=== PATIENT | male | born 1955 | race Hispanic/Latino ===

== ENCOUNTER 2023-07-16 05:02 | Observation (INO) | payer OTHER ==
[2023-07-11 11:03] LABS: BASOPHILS # (AUTO) 0.06 K/uL (0.00-0.20); BASOPHILS % (AUTO) 0.6 % (0.0-5.0); EOSINOPHILS # (AUTO) 0.29 K/uL (0.00-0.70); EOSINOPHILS % (AUTO) 3.1 % (0.0-8.0); HEMATOCRIT 44.9 % (42-54); IMMATURE GRANULOCYTE ABSOLUTE 0.03 K/uL (0-1); LYMPHOCYTES # (AUTO) 3.2 K/uL (1.0-4.8); LYMPHOCYTES % (AUTO) 33.2 % (21.0-51.0); MEAN CORPUSCULAR HEMOGLOBIN 29.9 pg (27.0-33.0); MEAN CORPUSCULAR VOLUME 90.7 fL (79-99); MONOCYTES # (AUTO) 0.8 K/uL (0.1-1.0); MONOCYTES % (AUTO) 8.3 % (3.0-13.0); NEUTROPHILS # (AUTO) 5.2 K/uL (1.8-7.7); NEUTROPHILS % (AUTO) 54.5 % (40.0-77.0); PLATELET COUNT (AUTO) 252 K/uL (130-400); RED BLOOD CELL COUNT(AUTO) 4.95 MIL/uL (4.50-6.20); RED CELL DISTRIBUTION WIDTH 12.6 % (11.0-15.5); WHITE BLOOD COUNT (AUTO) 9.5 K/uL (4.8-10.8)
[2023-07-11 11:04] VITALS: BP 199/95; PULSE 96; RESP 17
[2023-07-11 11:05] LABS: CREATININE 0.8 mg/dL (0.5-1.5); POTASSIUM 3.9 mmol/L (3.5-5.1)
[2023-07-11 11:36] LABS: INR 1.05 (0.85-1.15); PARTIAL THROMBOPLASTIN TIME 28.5 SEC (26.3-35.5); PROTHROMBIN TIME 11.3 SEC (9.6-11.6)
[~2023-07-16] VITALS: Ht 165.1 cm; Wt 121.2 kg
[2023-07-16] VITALS (27 sets, daily range): BP systolic 120–198; BP diastolic 65–111; PULSE 62–95; RESP 15–19; O2SAT 100
[~2023-07-16 05:02] MED LIST: ALLO100T PO; LOSA50TA64 PO; SIMV5TAB58 PO; [UNRECOGNIZED DRUG - OTHER] PO
[2023-07-16] MEDS ORDERED: LACTATED RINGERS 1000ML 1,000 ML IV ONE (06:12)
[2023-07-16] MEDS ORDERED: CEFAZOLIN SODIUM 1 GM VIAL ONE (06:12)
[2023-07-16] MEDS ORDERED: 0.9%NACL 100ML 48.45 ML, ROPIVACAINE 0.5% 5MG/ML 30ML 246.25 MG, KETOROLAC TROMETHAMINE... IV PRN ×5 (06:30)
[2023-07-16] MEDS ORDERED: FENTANYL CITRATE PF 50 MCG/1 ML 5ML AMP IV ONE ×3 (07:26→09:49)
[2023-07-16] MEDS ORDERED: MIDAZOLAM HCL 1 MG/ML 2ML VIAL ONE (08:07)
[2023-07-16] MEDS ORDERED: PROPOFOL 10 MG/ML 20ML VIAL IV ONE ×3 (08:07→11:07)
[2023-07-16] MEDS ORDERED: ONDANSETRON 4MG INJ ONE (08:12)
[2023-07-16] MEDS ORDERED: MIDAZOLAM HCL 1 MG/ML 5ML VIAL ONE (08:40)
[2023-07-16] MEDS ORDERED: KETAMINE 50MG/ML SYRINGE 50 MG/ML DISP.SYRIN ONE (08:40)
[2023-07-16] MEDS ORDERED: EPHEDRINE SULFATE 50 MG/ML AMPULE ONE (08:55)
[2023-07-16] MEDS ORDERED: LIDOCAINE HCL-MPF 1% 5ML AMP IJ ONE (10:02)
[2023-07-16] MEDS ORDERED: MEPERIDINE-PF 25 MG/ML SYG ONE ×2 (10:17→12:15)
[2023-07-16] MEDS ORDERED: NASAL DECONGESTANT NASAL (10:23)
[2023-07-16] MEDS ORDERED: TRANEXAMIC ACID 1000MG/10ML ONE ×2 (11:26→12:36)
[2023-07-16] MEDS ORDERED: HYDROMORPHONE PCA 10 MG/50 ML 50 ML IV ONE (13:41)
[2023-07-16] MEDS ORDERED: ACETAMINOPHEN 325 MG TAB PO PRN ×4 (14:00→15:00)
[2023-07-16] MEDS ORDERED: NALOXONE HCL 0.4 MG/1 ML ML IVP PRN (14:00)
[2023-07-16] MEDS ORDERED: HYDROMORPHONE PCA 10 MG/50 ML 50 ML IV PRN (14:00)
[2023-07-16] MEDS ORDERED: ONDANSETRON 4MG INJ IVP PRN ×2 (14:00→15:00)
[2023-07-16] MEDS ORDERED: DECONGESTANT NASAL PRN (14:00)
[2023-07-16] MEDS ORDERED: DIPHENHYDRAMINE HCL 25 MG CAPSULE PO PRN (15:00)
[2023-07-16] MEDS ORDERED: LACTULOSE 20 GM/30 ML UDCUP PO PRN (15:00)
[2023-07-16] MEDS ORDERED: ACETAMINOPHEN 325 MG TAB PO SCH (15:00)
[2023-07-16] MEDS ORDERED: DIPHENHYDRAMINE HCL 25 MG CAPSULE PO SCH (15:00)
[2023-07-16] MEDS: 0.9%NACL 1000ML 1,000 ML IV SCH ×2 (15:00→19:55)
[2023-07-16] MEDS ORDERED: DIPHENOXYLATE HCL/ATROPINE 2.5/0.025 MG TAB PO PRN (15:00)
[2023-07-16] MEDS ORDERED: BENZOCAINE/MENTH/CETYLPYRD CL 1 EACH LOZENGE MM PRN (15:00)
[2023-07-16] MEDS ORDERED: DiphenhydrAMINE HCL 50 MG/ML VIAL IM PRN (15:00)
[2023-07-16] MEDS ORDERED: MAG/ALUM/SIMETH 30 ML UDCUP PO PRN (15:00)
[2023-07-16] MEDS: RIVAROXABAN 10 MG TABLET PO SCH (15:58)
[2023-07-16] MEDS: TRAMADOL HCL 50 MG TABLET PO PRN ×2 (15:59→20:06)
[2023-07-16] MEDS ORDERED: CEFAZOLIN SODIUM 2 GM VIAL IVPB SCH (17:00)
[2023-07-16] MEDS ORDERED: HYDRALAZINE 20MG/ML VIAL IV PRN (18:00)
[2023-07-16] MEDS: CEFAZOLIN SODIUM 3 GM in DEXTROSE 5%-WATER 100 ML IVPB SCH (18:23)
[2023-07-16] MEDS ORDERED: SIMVASTATIN 10 MG TABLET PO SCH (21:00)
[2023-07-17 00:02] VITALS: BP 126/67; PULSE 101; RESP 19
[2023-07-17] MEDS: TRAMADOL HCL 50 MG TABLET PO PRN ×3 (00:09→12:35)
[2023-07-17] MEDS: CEFAZOLIN SODIUM 3 GM in DEXTROSE 5%-WATER 100 ML IVPB SCH (00:10)
[2023-07-17 03:51] VITALS: BP 106/68; PULSE 90; RESP 18
[2023-07-17 05:00] LABS: HEMATOCRIT 38.4 % (42-54); MEAN CORPUSCULAR HGB CONC 32.3 g/dL (32.0-36.0); MEAN CORPUSCULAR VOLUME 92.8 fL (79-99); RED BLOOD CELL COUNT(AUTO) 4.14 MIL/uL (4.50-6.20); RED CELL DISTRIBUTION WIDTH 12.8 % (11.0-15.5); WHITE BLOOD COUNT (AUTO) 11.6 K/uL (4.8-10.8)
[2023-07-17 05:14] LABS: POTASSIUM 3.9 mmol/L (3.5-5.1)
[2023-07-17 05:15] LABS: INR 1.02 (0.85-1.15); PROTHROMBIN TIME 11.8 SEC (9.6-11.6)
[2023-07-17 07:58] VITALS: O2SAT 95
[2023-07-17 08:00] VITALS: BP 121/67; PULSE 91; RESP 16
[2023-07-17] MEDS ORDERED: ALLOPURINOL 100 MG TABLET PO SCH (09:00)
[2023-07-17] MEDS ORDERED: LOSARTAN 50 MG TABLET PO SCH (09:00)
[2023-07-17] MEDS: RIVAROXABAN 10 MG TABLET PO SCH (09:05)
[2023-07-17] MEDS ORDERED: RIVA10TA PO (10:57)
[2023-07-17] MEDS: 0.9%NACL 1000ML 1,000 ML IV SCH (11:00)
[2023-07-17 12:00] VITALS: BP 127/59; PULSE 94; RESP 16
[2023-07-17 16:00] VITALS: BP 120/63; PULSE 100; RESP 16
== END 2023-07-17 17:15 | disposition home health service (06) ==
LOC: DAH 05:02 → 4BH 05:03
PROVIDERS: ADMIT Orthopaedic Surgery; ATTEND Orthopaedic Surgery
DX: M17.11 Unilateral primary osteoarthritis, right knee (principal); I12.9 Hypertensive chronic kidney disease with stage 1 through stage 4 chronic kidney disease, or unspecified chronic kidney disease; N18.9 Chronic kidney disease, unspecified; M10.9 Gout, unspecified; E78.5 Hyperlipidemia, unspecified; E66.01 Morbid (severe) obesity due to excess calories; K63.5 Polyp of colon; Z68.41 Body mass index [BMI] 40.0-44.9, adult; Z79.01 Long term (current) use of anticoagulants; Z87.19 Personal history of other diseases of the digestive system; Z96.652 Presence of left artificial knee joint
CPT/HCPCS: 80048 ×2; 85025; 85610 ×2; 85730; 36415 ×2; 71045; 93005; 87641; 27447; 96365; 96366 ×2; 96375; 96368; 97161; 97012; 97116 ×3; 97530 ×6; 85027; A6260; G0378 ×23; A4510; A4663; J7120 ×2; A4215 ×2; A4649 ×4; J3010 ×3; J0690 ×2; J3490 ×5; J1170; J0171; J0360; J2250 ×2; J7060; J2704 ×3; J2405; J1885; J2175 ×2; J2795; J0735; A6223; C1763 ×2; C1776; A5120; A4223; A4222; A4221; A6450; J7030; 96367

== ENCOUNTER → 2023-09-03 | Outpatient (CLI) | payer OTHER ==
[~2023-09-03] MED LIST changes: +NASAL DECONGESTANT NASAL; +RIVA10TA PO; -[UNRECOGNIZED DRUG - OTHER] PO
== END | disposition home or self-care (01) ==
LOC: RAH 07:39
PROVIDERS: ATTEND Family Medicine
DX: R94.5 Abnormal results of liver function studies (principal)
CPT/HCPCS: 76700